=== PATIENT | male | born 1970 | race Caucasian/White ===

== ENCOUNTER → 2016-11-09 | Outpatient (CLI) | payer OTHER ==
--- NOTE | 2016-11-10 04:22 | REP ---
Clinical: Trauma. Contusion. Technique: [place], [place], lateral, bilateral orbital, and zygomatic arch views. Findings: Osseous structures are intact and without obvious acute fracture or dislocation. Sinuses appear well-aerated and clear. Surrounding soft tissues grossly unremarkable. Impression: No obvious facial bone fracture / dislocation. Signed by Alberto Newby MD 11/10/2016 04:14 A
== END ==
LOC: M WUC 18:42
PROVIDERS: ATTEND Physician Assistant
DX: S00.83XA Contusion of other part of head, initial encounter (principal); X58.XXXA Exposure to other specified factors, initial encounter; Y92.89 Other specified places as the place of occurrence of the external cause

== ENCOUNTER → 2017-03-14 | Outpatient (CLI) | payer OTHER ==
--- NOTE | 2017-03-14 16:51 | REP ---
RIGHT HAND, FOUR VIEWS: HISTORY: Puncture wound. There is no acute fracture or dislocation. The joint spaces are normal in appearance. Osteophytes are present on the distal phalanges of the 2nd and 3rd digits. An ossified density is present lateral to the distal interphalangeal joint space of the 3rd digit. This represents ligamentous or tendon calcification. IMPRESSION: There is no acute fracture or dislocation. Signed by Cuong Harrell MD 03/14/2017 04:56 P
== END ==
LOC: M WUC 15:15
PROVIDERS: ATTEND Physician Assistant
DX: S61.431A Puncture wound without foreign body of right hand, initial encounter (principal); X58.XXXA Exposure to other specified factors, initial encounter; Y93.9 Activity, unspecified; Y92.9 Unspecified place or not applicable; Y99.8 Other external cause status

== ENCOUNTER → 2017-09-06 | Outpatient (CLI) | payer OTHER | LOC: M RAD 15:45 | DX: R04.0 Epistaxis (principal) | CPT/HCPCS: 70486 ==

== ENCOUNTER → 2022-01-10 | Outpatient (CLI) | payer OTHER | LOC: M WUC 11:59 | PROVIDERS: ATTEND Physician Assistant | DX: M19.011 Primary osteoarthritis, right shoulder (principal); M77.9 Enthesopathy, unspecified ==